=== PATIENT | male | born 1940 | race Hispanic/Latino ===

== ENCOUNTER 2018-10-10 15:41 | Inpatient (IN) | payer MEDICARE ==
[2018-10-10] MEDS ORDERED: Albuterol-Ipratrop 3 mg / 0.5 (3 ml) UD ONE ×2 (15:49→17:06)
[2018-10-10] MEDS ORDERED: Magnesium Sulfate 454 g Box PO ONE (16:59)
[2018-10-10] MEDS ORDERED: Albuterol-Ipratrop 3 mg / 0.5 (3 ml) UD INH STA ×3 (17:00→21:08)
[2018-10-10] MEDS ORDERED: Magnesium Sulfate 1 gm in D5W 1 GM/100 ML BAG IVPB ONE ×3 (17:05→17:22)
--- NOTE | 2018-10-10 17:05 | C.PDOC ---
History Of Present Illness 77 y/o male with a PMHx of Lyme disease, CAD, [place], chronic constipation, and hiatal hernia, presents to the ED for evaluation of SOB, worsening over the past few days. Patient states he has been coughing since and was seen by a doctor on 09/30, diagnosed with pneumonia, and started on a z-pack with no relief. He then was given another antibiotic for 7 days, with no improvement. Patient reports persistent coughing and SOB. Today while resting at home he became increasingly dyspneic, went to an urgent care and was referred to the ED. Patient was given nebulizer treatment with some improvement.(+) hx of heavy smoking. Time Seen by Provider: 10/10/18 16:25 Chief Complaint (Nursing): Shortness Of Breath History Per: Patient History/Exam Limitations: no limitations Onset/Duration Of Symptoms: Persistent Current Symptoms Are (Timing): Still Present Exacerbating Factor(s): Coughing Past Medical History Reviewed: Historical Data, Nursing Documentation, Vital Signs Vital Signs: Last Vital Signs Temp 99.3 F 10/10/18 15:49 Pulse 117 H 10/10/18 16:04 Resp 22 10/10/18 16:04 BP 184/92 H 10/10/18 16:04 Pulse Ox 98 10/10/18 16:04 - Medical History PMH: CAD Other PMH: Lyme disease, Hiatal hernia, acute LA Surgical History: Coronary Stent Family History: States: No Known Family Hx - Social History Hx Tobacco Use: Yes (Former heavy smoker) Hx Alcohol Use: Yes Hx Substance Use: No Review Of Systems Except As Marked, All Systems Reviewed And Found Negative. Constitutional: Negative for: Fever, Chills Eyes: Negative for: Vision Change Cardiovascular: Negative for: Chest Pain, Palpitations Respiratory: Positive for: Cough, Shortness of Breath. Negative for: Hemoptysis Gastrointestinal: Negative for: Nausea, Vomiting Skin: Negative for: Rash Neurological: Negative for: Headache, Dizziness Physical Exam - Physical Exam Appears: Non-toxic, No Acute Distress Skin: Normal Color, Warm, Dry Head: Atraumatic, Normacephalic Eye(s): bilateral: Normal Inspection, PERRL, EOMI Oral Mucosa: Moist Neck: Normal ROM Chest: Symmetrical Cardiovascular: Rhythm Regular, No JVD Respiratory: No Rales, No Rhonchi, Wheezing (bilateral diffuse expiratory wheezes) Gastrointestinal/Abdominal: Soft, No Tenderness, No Distention Extremity: Bilateral: Atraumatic, Normal Color And Temperature, Other (No pitting edema) Pulses: Left Dorsalis Pedis: Normal, Right Dorsalis Pedis: Normal Neurological/Psych: Oriented x3, Normal Speech ED Course And Treatment - Laboratory Results Result Diagrams: 10/12/18 07:30 10/12/18 07:30 O2 Sat by Pulse Oximetry: 98 (RA) Pulse Ox Interpretation: Normal Medical Decision Making Medical Decision Making: Impression: Acute bronchitis, r/o pneumonia Plan: - Labs - EKG - Chest x-ray - 1 gm IV mag sulfate x2 - 125 mg IV Solu-Medrol Disposition - Disposition Disposition: HOSPITALIZED Disposition Time: 18:48 Condition: GOOD - Clinical Impression Clinical Impression: Asthma exacerbation in COPD - Scribe Statement The provider has reviewed the documentation as recorded by the Shiela Fox Provider Attestation: All medical record entries made by the Shiela were at my direction and personally dictated by me. I have reviewed the chart and agree that the record accurately reflects my personal performance of the history, physical exam, medical decision making, and the department course for this patient. I have also personally directed, reviewed, and agree with the discharge instructions and disposition.
[2018-10-10 17:06] LABS: BASO # 0.1 K/uL (0.0-0.2); BASO % 1.2 % (0.0-2.0); EOS # 0.4 K/uL (0.0-0.7); EOS % 5.1 % (0.0-4.0); HEMOGLOBIN 16.6 g/dL (12.0-18.0); LYMPH # 1.7 K/uL (1.0-4.3); LYMPH % 20.3 % (20.0-40.0); MEAN CELL VOLUME 95.1 fL (80.0-94.0); MEAN CORPUSCULAR HGB CONC 33.7 g/dL (33.0-37.0); MONO # 0.6 K/uL (0.0-0.8); MONO % 6.5 % (0.0-10.0); NEUT # 5.7 K/uL (1.8-7.0); NEUT % 66.9 % (50.0-75.0); NRBC % 0.1 % (0.0-2.0); RBC 5.2 Mil/uL (4.40-5.90); RED CELL DISTRIBUTION WIDTH 13.3 % (11.5-14.5); WHITE BLOOD COUNT 8.6 K/uL (4.8-10.8)
[2018-10-10 17:20] LABS: ALB/GLOB RATIO 1.3 (1.0-2.1); ALBUMIN 4.8 g/dL (3.5-5.0); ALT/SGPT 39 U/L (21-72); AST/SGOT 31 U/L (17-59); BLOOD UREA NITROGEN 16 mg/dL (9-20); CALCIUM 9.2 mg/dl (8.6-10.4); GFR NON-AFRICAN AMERICAN > 60
[2018-10-10] MEDS: Magnesium Sulfate 1 gm in D5W 1 GM/100 ML BAG IVPB SCH ×2 (17:27→17:28)
[2018-10-10 17:32] LABS: B-TYPE NATRIURETIC PEPTIDE 260 pg/mL (0-900)
[2018-10-10 17:34] LABS: URINE BILIRUBIN NEGATIVE (NEGATIVE); URINE BLOOD NEGATIVE (NEGATIVE); URINE CLARITY Clear (Clear); URINE COLOR Yellow (YELLOW); URINE GLUCOSE (UA) NORMAL (Normal); URINE LEUKOCYTE ESTERASE NEG Leu/uL (Negative); URINE PROTEIN 2+ mg/dL (NEGATIVE); URINE UROBILINOGEN NORMAL mg/dL (0.2-1.0)
--- NOTE | 2018-10-10 18:16 | RAD ---
Date of service: 10/10/2018 PROCEDURE: CHEST RADIOGRAPH, 1 VIEW HISTORY: SOB COMPARISON: None available. FINDINGS: LUNGS: Clear. PLEURA: No pneumothorax or pleural fluid seen. CARDIOVASCULAR: No aortic atherosclerotic calcification present. Normal. OSSEOUS STRUCTURES: No significant abnormalities. VISUALIZED UPPER ABDOMEN: Normal. OTHER FINDINGS: None. IMPRESSION: No active disease.
[2018-10-10 22:58] VITALS: RESP 20
[2018-10-11] MEDS: Budesonide 0.25 mg/2 ml Inhal Susp UD INH SCH ×2 (07:57→19:50)
[2018-10-11] MEDS: Albuterol-Ipratrop 3 mg / 0.5 (3 ml) UD INH SCH ×3 (07:57→19:50)
[2018-10-11] MEDS: Pantoprazole 40 mg EC Tab PO SCH (09:18)
[2018-10-11] MEDS: Enoxaparin 40 mg Syringe SC SCH (09:38)
--- NOTE | 2018-10-11 15:16 | CP.PCM.CON ---
History of Present Illness - History of Present Illness History of Present Illness: Reason for consultation: shortness of breath and productive cough 77-year-old male with history of coronary artery disease status post stent placement, Lyme disease hiatal hernia, COPD who presented to emergency room complaining of productive cough and worsening shortness of breath. yesterday while resting at home he became increasingly dyspneic, went to an urgent care and was referred to the ED. Patient was given nebulizer treatment with some improvement.(+) hx of heavy smoking. Review of Systems - Review of Systems All systems: reviewed and no additional remarkable complaints except (productive cough and shortness of breath) Past Patient History - Past Medical History & Family History Past Medical History?: Yes - Past Social History Smoking Status: Former Smoker - CARDIAC Hx Cardiac Disorders: Yes Hx Heart Attack: Yes (1996) Hx Hypertension: Yes - PULMONARY Hx Respiratory Disorders: Yes Hx Pneumonia: Yes - NEUROLOGICAL Hx Neurological Disorder: Yes Hx Vertigo: Yes Other/Comment: lyme disease 2011 - HEENT Hx HEENT Problems: Yes Other/Comment: poor vision - RENAL Hx Chronic Kidney Disease: No - ENDOCRINE/METABOLIC Hx Endocrine Disorders: No - HEMATOLOGICAL/ONCOLOGICAL Other/Comment: lyme disease - INTEGUMENTARY Hx Dermatological Problems: Yes Hx Melanoma: Yes (2007 w/ surgery back) - MUSCULOSKELETAL/RHEUMATOLOGICAL Hx Falls: Yes - GASTROINTESTINAL Hx Gastrointestinal Disorders: Yes Hx Constipation: Yes Hx Gastroesophageal Reflux: Yes - PSYCHIATRIC Hx Substance Use: No - SURGICAL HISTORY Hx Surgeries: Yes Hx Coronary Stent: Yes (2015) Other/Comment: melanoma sx,head injury w/ sx from fall - ANESTHESIA Hx Anesthesia: Yes Hx Anesthesia Reactions: No Meds Allergies/Adverse Reactions: Allergies Allergy/AdvReac Type Severity Reaction Status Date / Time Penicillins Allergy Verified 10/10/18 15:48 - Medications Medications: Current Medications Albuterol/Ipratropium (Duoneb 3 Mg/0.5 Mg (3 Ml) Ud) 3 ml INH RQ6 [facility] Last Admin: 10/11/18 07:57 Dose: 3 ml Aspirin (Aspirin) 325 mg PO DAILY [facility] Last Admin: 10/11/18 09:18 Dose: 325 mg Budesonide (Pulmicort Respules) 0.25 mg INH RQ12 [facility] Last Admin: 10/11/18 07:57 Dose: 0.25 mg Docusate Sodium (Colace) 200 mg PO DAILY [facility] Last Admin: 10/11/18 09:18 Dose: 200 mg Enoxaparin Sodium (Lovenox) 40 mg SC DAILY [facility] Last Admin: 10/11/18 09:38 Dose: Not Given Methylprednisolone (Solu-Medrol) 60 mg IV Q6H [facility] Last Admin: 10/11/18 12:07 Dose: 60 mg Pantoprazole Sodium (Protonix Ec Tab) 40 mg PO DAILY [facility] Last Admin: 10/11/18 09:18 Dose: 40 mg Pneumococcal Polyvalent Vaccine (Pneumovax 23 Vaccine) 0.5 ml IM .ONCE ONE Stop: 10/12/18 10:01 Physical Exam - Head Exam Head Exam: ATRAUMATIC - Eye Exam Eye Exam: Normal appearance - ENT Exam ENT Exam: Mucous Membranes Moist - Neck Exam Neck exam: Positive for: Normal Inspection - Respiratory Exam Respiratory Exam: Rhonchi, Wheezes - Cardiovascular Exam Cardiovascular Exam: REGULAR RHYTHM - GI/Abdominal Exam GI & Abdominal Exam: Normal Bowel Sounds - Extremities Exam Extremities exam: Positive for: normal inspection Results - Vital Signs Recent Vital Signs: Last Vital Signs Temp 98.1 F 10/11/18 08:40 Pulse 70 10/11/18 08:40 Resp 20 10/11/18 08:40 BP 174/74 H 10/11/18 08:40 Pulse Ox 96 10/11/18 08:40 - Labs Result Diagrams: 10/10/18 16:57 10/10/18 16:57 Labs: Laboratory Results - last 24 hr 10/10/18 10/10/18 10/10/18 16:57 16:57 17:29 WBC 8.6 RBC 5.20 Hgb 16.6 Hct 49.4 MCV 95.1 H MCH 32.0 H MCHC 33.7 RDW 13.3 Plt Count 260 MPV 8.0 Neut % (Auto) 66.9 Lymph % (Auto) 20.3 [place] % (Auto) 6.5 Eos % (Auto) 5.1 H Baso % (Auto) 1.2 Neut # (Auto) 5.7 Lymph # (Auto) 1.7 [place]ward # (Auto) 0.6 Eos # (Auto) 0.4 Baso # (Auto) 0.1 Sodium 141 Potassium 3.8 Chloride 101 Carbon Dioxide 29 Anion Gap 15 BUN 16 Creatinine 0.8 Est GFR ( Amer) > 60 Est GFR (Non-Af Amer) > 60 Random Glucose 136 H Calcium 9.2 Total Bilirubin 0.6 AST 31 ALT 39 Alkaline Phosphatase 134 H Troponin I < 0.0120 NT-Pro-B Natriuret Pep 260 Total Protein 8.3 Albumin 4.8 Globulin 3.5 Albumin/Globulin Ratio 1.3 Urine Color Yellow Urine Clarity Clear Urine pH 5.0 Ur Specific [place] 1.023 Urine Protein 2+ H Urine Glucose (UA) Normal Urine Ketones Trace Urine Blood Negative Urine Nitrate Negative Urine Bilirubin Negative Urine Urobilinogen Normal Ur Leukocyte Esterase Neg Urine WBC (Auto) < 1 Urine RBC (Auto) 1 Influenza Typ A,B (EIA) 10/10/18 20:57 WBC RBC Hgb Hct MCV MCH MCHC RDW Plt Count MPV Neut % (Auto) Lymph % (Auto) Woodward % (Auto) Eos % (Auto) Baso % (Auto) Neut # (Auto) Lymph # (Auto) Woodward # (Auto) Eos # (Auto) Baso # (Auto) Sodium Potassium Chloride Carbon Dioxide Anion Gap BUN Creatinine Est GFR ( Amer) Est GFR (Non-Af Amer) Random Glucose Calcium Total Bilirubin AST ALT Alkaline Phosphatase Troponin I NT-Pro-B Natriuret Pep Total Protein Albumin Globulin Albumin/Globulin Ratio Urine Color Urine Clarity Urine pH Ur Specific Eighty Eight Urine Protein Urine Glucose (UA) Urine Ketones Urine Blood Urine Nitrate Urine Bilirubin Urine Urobilinogen Ur Leukocyte Esterase Urine WBC (Auto) Urine RBC (Auto) Influenza Typ A,B (EIA) Negative for flu a/b Assessment & Plan (1) COPD exacerbation Status: Acute Comment: nebulizer treatment. IV steroids. Avelox. Pulmonary function test. Sleep study as outpatient
[2018-10-11] MEDS ORDERED: Moxifloxacin IV 400mg/250ml NS 400 MG/250 ML BAG IVPB SCH (16:30)
[2018-10-12] MEDS: Albuterol-Ipratrop 3 mg / 0.5 (3 ml) UD INH SCH ×2 (02:21→07:55)
--- NOTE | 2018-10-12 04:29 | HP ---
CHIEF COMPLAINT: Shortness of breath, coughing. HISTORY OF PRESENT ILLNESS: Mr. Dejan Grant is a 77-year-old male with past medical history of Lyme disease, coronary artery disease, [place], chronic constipation, hiatal hernia, came to the emergency department for evaluation of shortness of breath, worsening over the past few days. The patient states that he has been coughing since [place]. He was seen by the doctor on 09/30/2018, diagnosed with pneumonia, and started on Z-ROSIE with no relief. Then, he went to another urgent care center, got another seven days of antibiotics with no improvement. He got Medrol Dosepak also. According to the patient, he has persistent coughing and shortness of breath. Today, he was increasingly dyspneic, went to urgent care, and was referred to ED with 911 from the urgent care center. The patient was given nebulizer treatment in the urgent care center without some improvement. History of heavy smoking. PAST MEDICAL HISTORY: Coronary artery disease, Lyme disease, NV, chronic constipation, hiatal hernia, obesity, and history of coronary stenting. FAMILY HISTORY: Father and mother noncontributory. HABITS: Yes, former smoker, heavy smoker. Alcohol, yes. Substance abuse, no. ALLERGIES: THE PATIENT IS ALLERGIC WITH PENICILLIN. HOME MEDICATIONS: DuoNeb, aspirin, Z-ROSIE, other antibiotics, and Medrol Dosepak. REVIEW OF SYSTEMS: The patient was seen and examined at bedside. Still coughing and wheezing. Sometimes getting shortness of breath. No fever, no chills. No hematuria, no hematochezia. No headache, no dizziness. No chest pain, no palpitation. PHYSICAL EXAMINATION: VITAL SIGNS: Temperature 98.1, pulse 70, respiratory rate 20, and blood pressure 174/74. HEENT: Normocephalic and atraumatic. Eyes, PERRLA. Extraocular muscles intact. Conjunctivae clear. Nose patent. NECK: Supple. No carotid bruit, JVD, or thyromegaly. CHEST: Positive wheezing, especially expiratory. ABDOMEN: Soft, obese. EXTREMITIES: No edema. No cyanosis. NEUROLOGIC: The patient is awake, alert. Moving all four extremities. No focal deficit. LABORATORIES: White blood cells 8.6, hemoglobin 16.6, hematocrit 49.4, platelets 260. Sodium 141, potassium 3.8, BUN 16, creatinine 0.8, glucose 136. ASSESSMENT AND PLAN: Mr. Dejan Grant is a 77-year-old male with hypertension, hyperglycemia, came with chronic obstructive pulmonary disease exacerbation, got nebulizer treatment, IV steroids given. Antibiotics offered, the patient refused. Pulmonary is on the case. Pulmicort started. Dr. Castano ordered Avelox. Need a sleep study and pulmonary function test. The patient is obese. According to him, he is snoring at night. The patient has history of Lyme disease, hiatal hernia, chronic obstructive pulmonary disease, history of heavy smoking, history of heart attack, history of pneumonia as per the patient, history of melanoma, Gastrointestinal and deep venous thrombosis prophylaxis. I appreciate Dr. Tan Mast's input. Length of time discussion done with the patient and the patient also. I reviewed chest x-ray. Repeat laboratories. We will follow up. Johanna Burger MD MTDD
[2018-10-12 07:50] LABS: HEMOGLOBIN 14.7 g/dL (12.0-18.0); MEAN CELL VOLUME 95.4 fL (80.0-94.0); MEAN CORPUSCULAR HEMOGLOBIN 32.7 pg (27.0-31.0); MEAN CORPUSCULAR HGB CONC 34.3 g/dL (33.0-37.0); MEAN PLATELET VOLUME 7.9 fL (7.2-11.7); RBC 4.5 Mil/uL (4.40-5.90); RED CELL DISTRIBUTION WIDTH 13.4 % (11.5-14.5)
[2018-10-12 07:51] LABS: WHITE BLOOD COUNT 15.5 K/uL (4.8-10.8)
[2018-10-12] MEDS: Budesonide 0.25 mg/2 ml Inhal Susp UD INH SCH (07:55)
[2018-10-12 08:08] VITALS: BP 151/84; PULSE 84; TEMP 97.8
[2018-10-12 08:11] LABS: BLOOD UREA NITROGEN 24 mg/dL (9-20); GFR NON-AFRICAN AMERICAN > 60
[2018-10-12] MEDS: Pantoprazole 40 mg EC Tab PO SCH (09:34)
[2018-10-12] MEDS: Enoxaparin 40 mg Syringe SC SCH (09:41)
[2018-10-12] MEDS ORDERED: Pneumococcal 23-Valent Vaccine IM ONE ×2 (10:00→14:14)
--- NOTE | 2018-10-12 14:10 | CP.PCM.PN ---
Subjective - Date & Time of Evaluation Date of Evaluation: 10/12/18 Time of Evaluation: 12:30 - Subjective Subjective: Patient seen and examined Sitting comfortably in no distress Or shortness of breath Denies cough Afebrile No chest pain Wants to go home Objective - Vital Signs/Intake and Output Vital Signs (last 24 hours): Temp Pulse Resp BP Pulse Ox 97.8 F 84 20 151/84 H 95 10/12/18 07:00 10/12/18 07:00 10/12/18 07:00 10/12/18 07:00 10/12/18 07:00 Intake and Output: 10/12/18 10/12/18 06:59 18:59 Intake Total 400 Balance 400 - Medications Medications: Current Medications Albuterol/Ipratropium (Duoneb 3 Mg/0.5 Mg (3 Ml) Ud) 3 ml INH RQ6 [facility] Last Admin: 10/12/18 07:55 Dose: 3 ml Aspirin (Aspirin) 325 mg PO DAILY [facility] Last Admin: 10/12/18 09:34 Dose: 325 mg Budesonide (Pulmicort Respules) 0.25 mg INH RQ12 [facility] Last Admin: 10/12/18 07:55 Dose: 0.25 mg Docusate Sodium (Colace) 200 mg PO DAILY [facility] Last Admin: 10/12/18 09:34 Dose: 200 mg Enoxaparin Sodium (Lovenox) 40 mg SC DAILY [facility] Last Admin: 10/12/18 09:41 Dose: Not Given Moxifloxacin HCl (Avelox Iv 400mg/250ml Ns) 400 mg in 250 mls @ 167 mls/hr IVPB Q24H [facility]; Protocol Last Admin: 10/11/18 17:13 Dose: Not Given Methylprednisolone (Solu-Medrol) 60 mg IV Q6H [facility] Last Admin: 10/12/18 11:54 Dose: Not Given Pantoprazole Sodium (Protonix Ec Tab) 40 mg PO DAILY [facility] Last Admin: 10/12/18 09:34 Dose: 40 mg Zolpidem Tartrate (Ambien) 5 mg PO HS PRN PRN Reason: Insomnia Last Admin: 10/11/18 21:50 Dose: 5 mg - Labs Labs: 10/12/18 07:30 10/12/18 07:30 - Head Exam Head Exam: ATRAUMATIC, NORMOCEPHALIC - Eye Exam Eye Exam: Normal appearance - ENT Exam ENT Exam: Mucous Membranes Moist - Respiratory Exam Respiratory Exam: Clear to Ausculation Bilateral - Cardiovascular Exam Cardiovascular Exam: REGULAR RHYTHM - GI/Abdominal Exam GI & Abdominal Exam: Soft, Normal Bowel Sounds Assessment and Plan (1) COPD exacerbation Assessment & Plan: Discharge patient home on Medrol pack Rescue inhaler as needed Follow up in the office Status: Acute
--- NOTE | 2018-10-12 15:55 | CP.PCM.PN ---
Subjective - Date & Time of Evaluation Date of Evaluation: 10/12/18 Time of Evaluation: 11:00 - Subjective Subjective: alert, orientedx3, no sob or wheezing noted. Objective - Vital Signs/Intake and Output Vital Signs (last 24 hours): Temp Pulse Resp BP Pulse Ox 97.8 F 84 20 151/84 H 95 10/12/18 07:00 10/12/18 07:00 10/12/18 07:00 10/12/18 07:00 10/12/18 07:00 Intake and Output: 10/12/18 10/12/18 06:59 18:59 Intake Total 400 Balance 400 - Labs Labs: 10/12/18 07:30 10/12/18 07:30 Assessment and Plan - Assessment and Plan (Free Text) Assessment: 77 Year old male admitted with asthma exacerbation seen and examined. Alert and orientedx3, cleared by DR Castano. Discussed with DR Burger, plan to discharge home on medrol dose pack and proventil rescue inhaler. Advised to follow up with [place] 1 weak.
[2018-10-12 20:04] VITALS: O2SAT 98
--- NOTE | 2018-10-12 20:51 | CARD ---
APPROVED REPORT Date of service: 10/10/2018 EKG Measurement Heart [id number] <Conclusion> Sinus tachycardia with premature atrial complexes with aberrant conduction Right bundle branch block Abnormal ECG
== END 2018-10-12 14:41 | disposition home or self-care (01) | DRG 191 ==
LOC: C.ER 15:41 → C.9E 18:48 → C.6T 20:34
PROVIDERS: ADMIT Internal Medicine; ATTEND Internal Medicine
DX: J44.1 Chronic obstructive pulmonary disease with (acute) exacerbation (principal); J45.901 Unspecified asthma with (acute) exacerbation; J44.0 Chronic obstructive pulmonary disease with (acute) lower respiratory infection; I25.10 Atherosclerotic heart disease of native coronary artery without angina pectoris; I10 Essential (primary) hypertension; J20.9 Acute bronchitis, unspecified; K21.9 Gastro-esophageal reflux disease without esophagitis; Z85.820 Personal history of malignant melanoma of skin; Z87.891 Personal history of nicotine dependence; R73.9 Hyperglycemia, unspecified; E66.9 Obesity, unspecified; Z95.5 Presence of coronary angioplasty implant and graft; Z86.19 Personal history of other infectious and parasitic diseases; I25.2 Old myocardial infarction